=== PATIENT | male | born 1930 | race Caucasian/White ===

== ENCOUNTER 2016-07-26 20:55 | Emergency (ER) | payer MEDICARE, OTHER | END 2016-07-26 21:45 | disposition home or self-care (01) | LOC: ER 20:55 | DX: R05 Cough (principal); Z20.828 Contact with and (suspected) exposure to other viral communicable diseases; E11.9 Type 2 diabetes mellitus without complications; E78.5 Hyperlipidemia, unspecified; I10 Essential (primary) hypertension | CPT/HCPCS: 87502 ==